=== PATIENT | female | born 1940 | race Caucasian/White ===

== ENCOUNTER 2022-05-12 01:30 | Inpatient (IN) | payer MEDICARE, OTHER ==
[~2022-05-12] VITALS: Ht 152.4 cm; Wt 72.6 kg
--- NOTE | 2022-05-12 02:00 | NUR ---
BIBRA 102 FOR PATIENT LEFT [facility] AND REFUSES TO LIVE THERE. PT TOLERATING R/A WELL WITH NO SOB. CONNECTED PT TO POX AND MONITOR. SAFETY MEASURES IN PLACE.
--- NOTE | 2022-05-12 02:40 | NUR ---
ACE MASTERS (DAUGHTER) [phone]
--- NOTE | 2022-05-12 02:42 | NUR ---
Pt refusing to provide urine sample.
[2022-05-12] MEDS ORDERED: RISP0.5T5 PO (02:52)
[2022-05-12] MEDS ORDERED: TRAZ-182 PO (02:52)
[2022-05-12] MEDS ORDERED: AMLO-212 PO (02:52)
[2022-05-12] MEDS ORDERED: LEVO50TA8 PO (02:52)
[2022-05-12] MEDS ORDERED: LOSA100T31 PO (02:52)
[2022-05-12] MEDS ORDERED: CARV6.252 PO (02:52)
[2022-05-12] MEDS ORDERED: HYDR-4076 PO (02:52)
[2022-05-12] MEDS ORDERED: PANT40TA2 PO (02:52)
[2022-05-12] MEDS ORDERED: CLON0.2T PO (02:52)
[2022-05-12] MEDS ORDERED: ATOR40TA PO (02:52)
[2022-05-12] MEDS ORDERED: ONDA4TAB11 PO (02:52)
[2022-05-12] MEDS ORDERED: LAMO25TA5 PO (02:52)
[2022-05-12 03:20] LABS: BASOPHILS % (AUTO) 0.7 % (0.0-2.0); HEMATOCRIT 37 % (33-45); HEMOGLOBIN 12.9 g/dL (11.5-14.8); LYMPHOCYTES # (AUTO) 1.6 K/uL (0.8-4.8); MEAN CORPUSCULAR HGB CONC 35 g/dl (31.0-36.0); MEAN CORPUSCULAR VOLUME 91 fL (82-100); MONOCYTES # (AUTO) 0.9 K/uL (0.1-1.30); MONOCYTES % (AUTO) 14.3 % (2.0-12.0); NEUTROPHILS # (AUTO) 3.5 K/uL (1.8-8.9); PLATELET COUNT (AUTO) 201 K/uL (150-450); RED BLOOD CELL COUNT(AUTO) 4.13 MIL/uL (4.0-5.2); WHITE BLOOD COUNT (AUTO) 6.1 K/uL (4.3-11.0)
[2022-05-12 03:35] LABS: CALCIUM, SERUM 8.7 mg/dL (8.5-10.1); CARBON DIOXIDE 30 mmol/L (21-32); CHLORIDE 103 mmol/L (98-107); CREATININE 0.9 mg/dL (0.6-1.3); GLUCOSE 103 mg/dL (74-106); SODIUM SERUM 139 mmol/L (136-145); UREA NITROGEN, BLOOD 30 mg/dL (7-18)
[2022-05-12 03:45] LABS: ALANINE AMINOTRANSFERASE 31 U/L (12-78); ALBUMIN 3.6 g/dL (3.4-5.0); ALCOHOL, BLOOD < 3 mg/dL (0-0); ALKALINE PHOSPHATASE 89 U/L (46-116); ASPARTATE AMINOTRANSFERASE 21 U/L (15-37); BILIRUBIN,DIRECT 0.1 mg/dL (0.0-0.2); BILIRUBIN,TOTAL 0.5 mg/dL (0.2-1.0); TOTAL PROTEIN, SERUM 7.3 g/dL (6.4-8.2)
[2022-05-12 03:51] LABS: BILIRUBIN,URINE NEGATIVE (NEGATIVE); LEUKOCYTE ESTERASE ,URINE NEGATIVE (NEGATIVE); NITRITE, URINE NEGATIVE (NEGATIVE); PROTEIN,URINE 30 mg/dl (NEGATIVE); UGLUCOSE NEGATIVE (NEGATIVE); UROBILINOGEN,URINE 0.2 EU/dL (0.2)
[2022-05-12 03:54] LABS: ACETAMINOPHEN < 2 ug/ml (10-30); COLOR,URINE YELLOW (YELLOW)
--- NOTE | 2022-05-12 04:37 | NUR ---
[facility]SA SWAB COLLECTED AND SENT TO LAB. PATIENT'S BELONGINGS LIST DONE.
--- NOTE | 2022-05-12 04:38 | NUR ---
GPS 220-B
[2022-05-12] MEDS: hydrALAZINE HCL 25 MG TABLET PO SCH ×4 (05:00→21:00)
[2022-05-12] MEDS ORDERED: ONDANSETRON 4 MG TAB.RAPDIS PO SCH (05:00)
--- NOTE | 2022-05-12 05:02 | NUR ---
REPORT GIVEN TO MILAD AT GPS
--- NOTE | 2022-05-12 06:15 | NUR ---
PT TRANSFERED TO GPS VIA [facility].
[2022-05-12] MEDS ORDERED: MAG HYDROX/AL HYDROX/SIMETH 30 ML UDC PO PRN (07:00)
[2022-05-12] MEDS ORDERED: LORAZEPAM 0.5 MG TABLET PO PRN (07:00)
[2022-05-12] MEDS ORDERED: ACETAMINOPHEN 325 MG TABLET PO PRN (07:00)
[2022-05-12] MEDS ORDERED: MAGNESIUM HYDROXIDE 30 ML UDC PO PRN (07:00)
[2022-05-12] MEDS ORDERED: BLOOD SUGAR DIAGNOSTIC 1 EACH STRIP IN ONE (07:00)
[2022-05-12] MEDS ORDERED: TEMAZEPAM 7.5 MG CAPSULE PO PRN (07:00)
--- NOTE | 2022-05-12 07:08 | NUR ---
GPS RN ADMITTING NOTES: RECEIVED PATIENT FROM ER. PATIENT IS ON A 5150 HOLD FOR GD. HOLD WAS PLACED ON 05/12/22 @ 0255. PER HOLD PATIENT LEFT [facility] UPON ARRIVAL AT THE FACILITY BECAUSE SHE DOES NOT LIKE THE PLACE AND DOES NOT WANT TO LIVE THERE. PATIENT THEN LEFT THE FACILITY AND HOOKED UP WITH SOME STRANGERS AND HAD FUN UNTIL ABOUT 2AM BEFORE THEY CALLED 911 AFTER REALIZING PATIENT HAD NO PLACE TO GO. WHEN OFFICER ARRIVED, PATIENT SAID SHE WANTED TO FOLLOW HIM HOME. UPON FACE TO FACE EVALUATION, PATIENT IS A/O X3, LABILE, ANXIOUS, COOPERATIVE/UNCOOPERATIVE. PATIENT BS97MG/DL. SKIN ASSESSMENT DONE/SKIN INTACT. PATIENT DAUGHTER ACE INFORMED OF PATIENT ADMISSION AT 0659. PATIENT REFUSED PNEUMONIA VACCINE AND SIGNED SOME ADMISSION PAPERWORK AND REFUSED TO SIGN SOME. PER PATIENT SHE IS NOT VACCINATED AND DOES NOT WANT TO GET VACCINATED. PATIENT BELONGINGS WERE INVENTORIED AND CONTRABAND REMOVED AND PLACED IN PATIENT CONTRABAND LOCKER AND SUPERVISORS SAFE. PATIENT HAVE NO S/S OF DISTRESS, RESPIRATION EVEN AND UNLABORED WITH EQUAL RISE AND FALL OF THE CHEST, ON ROOM AIR. PATIENT IS UNDER THE PSYCHIATRIC CARE OF DR MATHEW AND MEDICAL CARE OF [facility]. PATIENT IS ORIENTED TO STAFF AND UNIT. PATIENT RIGHTS BOOKLET AND PRESCRIPTION MEDICATION GUIDE GIVEN TO PATIENT. PATIENT OFFERED FLUID AND SNACKS TOLERATED. ALL PATIENT CARE NEEDS HAVE BEEN MET ANTICIPATED. PATIENT HAS NO NEED AT THIS TIME. BED IN LOW LOCKED POSITION, SIDE RAILS UP X2 FOR SAFETY. WILL CONTINUE TO MONITOR Q15 FOR SAFETY, MOOD AND BEHAVIOR.
[2022-05-12] MEDS: LEVOTHYROXINE SODIUM 50 MCG TABLET PO SCH (07:30)
[2022-05-12 08:00] VITALS: BP 124/68
--- NOTE | 2022-05-12 08:00 | NUR ---
PT REFUSED MRSA TEST .
--- NOTE | 2022-05-12 08:00 | NUR ---
PATIENT REFUSED ADMISSION PICTURE AND SKIN ASSESSMENT .
[2022-05-12] MEDS ORDERED: LamoTRIgine 25 MG TABLET PO SCH (09:00)
[2022-05-12] MEDS: AMLODIPINE BESYLATE 5 MG TABLET PO SCH ×2 (09:00→09:19)
[2022-05-12] MEDS: PANTOPRAZOLE 40 MG TABLET.DR PO SCH (09:16)
[2022-05-12] MEDS: CARVEDILOL 6.25 MG TABLET PO SCH ×2 (09:18→17:29)
[2022-05-12] MEDS: LOSARTAN POTASSIUM 50 MG TABLET PO SCH (09:18)
[2022-05-12] MEDS: risperiDONE 1 MG TABLET PO SCH ×2 (11:00→17:00)
--- NOTE | 2022-05-12 11:05 | NUR ---
Treatment Plan: Pt refused to sign her treatment plan and was suspicious/paranoid of staff.
--- NOTE | 2022-05-12 11:25 | NUR ---
RAH Clinical Note: Patient placed on a 5150 hold for GD. Pt was found at [address] [facility] and she was confused and wandering on the streets. Patient has been refusing her medications at her facility. Patient currently resides at [facility] [address] [id number]; . Patient does not want to return back to her assisted living. RAH will contact pt's daughter Shanell ([phone]) to gather further collateral and discuss treatment plan.
--- NOTE | 2022-05-12 11:25 | NUR ---
RAH Initial Discharge Plan: Patient currently resides at [facility] [address] [place] [address]; . Patient does not want to return back to her assisted living. RAH will contact pt's daughter Shanell ([phone]) to gather further collateral and discuss treatment plan. RAH will work with the MD, treatment team, and family to help coordinate appropriate discharge.
--- NOTE | 2022-05-12 13:00 | NUR ---
RAH Family Contact: SW contacted pt's daughter Shanell ([phone]) to gather collateral and discuss treatment/discharge plan. Mailbox was full.
--- NOTE | 2022-05-12 14:08 | NUR ---
Facility Contact: RAH received a call from Disha meza from [facility] ([phone]) who stated that this pt was residing at [facility] and upon dc they would want to review her packet to admit pt. RAH will send clinicals on 05/14, , when updated clinicals are available. RAH will send H & P, progress notes, and medication list.
--- NOTE | 2022-05-12 14:59 | NUR ---
RAH Family Contact: SW contacted pt's daughter Shanell ([phone]) to discuss treatment and discharge plan. She was aware of pt going back to [facility] because pt has been there before. She reported she is the DPOA and will send the document to this publications writer.
[2022-05-12 16:00] VITALS: BP 150/86
--- NOTE | 2022-05-12 19:35 | NUR ---
GPS RN OPENING NOTES: RECEIVED PATIENT LAYING ON BED, AWAKE, A/O X3. BLUNTED AFFECT, LABILE, SUSPICIOUS, GUARDED, DEMANDING, COMMANDING, RESTLESS, ASKING TO BE DISCHARGE, TEACHING PROVIDED ABOUT 72HR HOLDS. DENIES PAIN, DENIES SI AT THIS TIME. NO S/S OF DISTRESS. RESPIRATION EVEN AND UNLABORED WITH EQUAL RISE AND FALL OF THE CHEST, ON ROOM AIR. OFFERED FLUID AND SNACKS TOLERATED. BED IN LOW LOCKED POSITION, CALL HICKS WITHIN REACH. WILL CONTINUE TO MONITOR Q15 FOR MOOD, SAFETY AND BEHAVIOR.
[2022-05-12 20:25] VITALS: BP 141/64
--- NOTE | 2022-05-12 21:35 | NUR ---
GPS RN NOTES: PATIENT REFUSED 2100 BP MEDICATION APRESOLINE 25MG 1TAB PO ORDERED. CURRENT BP141/61, P78. PER PATIENT "I'M EXERCISING MY RIGHT TO REFUSE, I CAN ONLY TAKE MEDICATION PRESCRIBED BY DR FU MY DOCTOR". TEACHING PROVIDED ON THE IMPORTANCE OF MAINTAINING BP WNL AND COMPLYING WITH TREATMENT PLAN. PATIENT IS DIFFICULT TO REDIRECT. WILL CONTINUE TO MONITOR.
[2022-05-12] MEDS: ATORVASTATIN 40 MG TABLET PO SCH (22:00)
--- NOTE | 2022-05-12 22:47 | NUR ---
GPS RN NOTES: PATIENT REFUSED 2200 BP MEDICATION LIPITOR 40MG 1TAB PO ORDERED
[2022-05-13] MEDS: hydrALAZINE HCL 25 MG TABLET PO SCH ×3 (05:00→21:00)
--- NOTE | 2022-05-13 05:49 | NUR ---
GPS RN NOTES: PATIENT REFUSED 0500 BP MEDICATION APRESOLINE 25MG 1TAB PO ORDERED.
--- NOTE | 2022-05-13 07:00 | NUR ---
GPS RN CLOSING NOTES: PATIENT IS CURRENTLY LAYING AWAKE, A/O X3. PATIENT SLEPT 7HRS THIS SHIFT. NO S/S OF DISTRESS. RESPIRATION EVEN AND UNLABORED WITH EQUAL RISE AND FALL OF THE CHEST, ON ROOM AIR. ALL PATIENT CARE NEEDS HAVE BEEN MET ANTICIPATED. WILL CONTINUE TO MONITOR Q15 FOR SAFETY, MOOD AND BEHAVIOR AND ENDORSE TO AM SHIFT.
[2022-05-13] MEDS: LEVOTHYROXINE SODIUM 50 MCG TABLET PO SCH (07:30)
[2022-05-13 08:00] VITALS: BP 165/87
[2022-05-13] MEDS: risperiDONE 1 MG TABLET PO SCH ×3 (08:54→21:00)
[2022-05-13] MEDS: CARVEDILOL 6.25 MG TABLET PO SCH ×2 (08:58→16:37)
[2022-05-13] MEDS: LOSARTAN POTASSIUM 50 MG TABLET PO SCH (08:58)
[2022-05-13] MEDS: PANTOPRAZOLE 40 MG TABLET.DR PO SCH (08:59)
[2022-05-13] MEDS: AMLODIPINE BESYLATE 5 MG TABLET PO SCH (08:59)
--- NOTE | 2022-05-13 09:16 | NUR ---
RN-CO: PATIENT DENIED PAIN AND DISCOMFORTS. REFUSED ALL HER MORNING MEDICATIONS. SHE IS EXTREMELY ARGUMENTATIVE, HAS PRESSURED SPEECH, INTENSE EYE CONTACT AND POINTED HER FINGER ON ME WHEN I ENCOURAGED HER TO TAKE AT LEAST HER BP PILL SINCE HER BP IS HIGH. BUT SHE BECAME MORE BELLIGERENT AND THREATEN TO MILA ME. I WILL CONTINUE TO MONITOR. DR MATHEW MADE AWARE.
--- NOTE | 2022-05-13 10:21 | NUR ---
SILAS EASTMAN. RN AND DOCTOR AWARE. Addendum: 05/13/22 at 1021 by SAFIA RAMON RT Amended: Links added.
--- NOTE | 2022-05-13 10:24 | NUR ---
RN-CO: DR MATHEW IS AWARE THAT PATIENT REFUSED EKG.
--- NOTE | 2022-05-13 10:39 | NUR ---
RN-CO: Patient refused lab works, encouraged but got agitated.
[2022-05-13] MEDS: NITROGLYCERIN 30 GM TUBE TP SCH ×2 (12:00→21:00)
--- NOTE | 2022-05-13 13:11 | NUR ---
RN-CO: Patient denied pain and discomforts, v/s are as follows: 152/68,94,98% 0/10, 97.9. Patient refused all her 1200 and 1300 medications. When I encouraged her and discussed the risks she stated " I HAVE A EVERY RIGHTS TO REFUSED. "
--- NOTE | 2022-05-13 14:15 | NUR ---
RN-CO: DR Kerns made aware that patient is refusing all her medications including lab works.
[2022-05-13 16:00] VITALS: BP 162/92
[2022-05-13] MEDS: CLONIDINE HCL 0.1 MG TABLET PO PRN (16:36)
--- NOTE | 2022-05-13 16:38 | NUR ---
RN-CO: Offered clonidine table to help redce bp of 162/92. Patient refused, Discussed the consequences of refusing this medication to her bp but patient stated again, " I have a right to refuse."
--- NOTE | 2022-05-13 19:39 | NUR ---
GPS RN OPENING NOTES: RECEIVED PATIENT AT NURSING STATION, A/O X3. BLUNTED AFFECT, LABILE, SUSPICIOUS, ARGUMENTATIVE, DEMANDING, RESTLESS. STATING "DON'T BOTHER TO GIVE ME ANY MEDICATIONS TONIGHT", THEN ASKED FOR A PHONE TO MAKE A CALL AND WENT BACK TO HER ROOM. NO S/S OF DISTRESS. RESPIRATION EVEN AND UNLABORED WITH EQUAL RISE AND FALL OF THE CHEST, ON ROOM AIR. OFFERED FLUID AND SNACKS TOLERATED. BED IN LOW LOCKED POSITION, CALL HICKS WITHIN REACH. WILL CONTINUE TO MONITOR Q15 FOR MOOD, SAFETY AND BEHAVIOR.
[2022-05-13 20:00] VITALS: BP 165/75
--- NOTE | 2022-05-13 21:22 | NUR ---
GPS RN NOTES: PATIENT REFUSED ALL PM MEDICATIONS. PER PATIENT, "GOD SAID I SHOULD NOT. I WANT TO BE DISCHARGED". PATIENT BP165/75, P81. PATIENT ENCOURAGED TO TAKE AT LEAST HER BP MED APRESOLINE 25 PO BUT PATIENT SAID NO. TEACHING PROVIDED ON THE IMPORTANCE OF COMPLYING WITH MEDICATION REGIMEN. REENFORCEMENT NEEDED. WILL CONTINUE TO MONITOR AND ENDORSE TO AM SHIFT.
[2022-05-13] MEDS: ATORVASTATIN 40 MG TABLET PO SCH (22:00)
[2022-05-14] MEDS: hydrALAZINE HCL 25 MG TABLET PO SCH ×3 (05:00→21:00)
[2022-05-14] MEDS: LEVOTHYROXINE SODIUM 50 MCG TABLET PO SCH (07:30)
[2022-05-14 08:00] VITALS: BP 155/84
[2022-05-14] MEDS: risperiDONE 1 MG TABLET PO SCH ×3 (08:00→21:00)
[2022-05-14] MEDS: LOSARTAN POTASSIUM 50 MG TABLET PO SCH (08:58)
[2022-05-14] MEDS: CARVEDILOL 6.25 MG TABLET PO SCH ×2 (08:58→17:00)
[2022-05-14] MEDS: NITROGLYCERIN 30 GM TUBE TP SCH ×2 (08:59→21:00)
[2022-05-14] MEDS: PANTOPRAZOLE 40 MG TABLET.DR PO SCH (08:59)
[2022-05-14] MEDS: AMLODIPINE BESYLATE 5 MG TABLET PO SCH (08:59)
--- NOTE | 2022-05-14 09:57 | NUR ---
GPS RN NOTE: PATIENT LAYING ON BED, AWAKE, A/O X3. LABILE, SUSPICIOUS, GUARDED, DEMANDING, RESTLESS, EASILY IRRITABLE,PATIENT REFUSED ALL AM MEDICATIONS PT STATES" I HAVE A RIGHT TO REFUSED MEDICATIONS AND CARE" OFFERED AND EXPLAIN X3 PT CONTINUE TO REFUSE. RESPIRATION EVEN AND UNLABORED WITH EQUAL RISE AND FALL OF THE CHEST, ON ROOM AIR. OFFERED FLUID AND SNACKS TOLERATED. BED IN LOW LOCKED POSITION, CALL HICKS WITHIN REACH. WILL CONTINUE TO MONITOR Q15 FOR MOOD, SAFETY AND BEHAVIOR.
[2022-05-14] MEDS: CLONIDINE HCL 0.2MG/24H PTWK 1 EA PATCH TD SCH (10:30)
[2022-05-14 16:00] VITALS: BP 165/84
--- NOTE | 2022-05-14 17:06 | NUR ---
GPS RN NOTE: PATIENT CONTINUE REFUSING MEDICATIONS AND TX , DISCUSS AND DOCUMENT THE PATIENTS UNDERSTANDING OF THE S/S OF CONTINUED NONCOMPLIANCE EXPLAIN PATIENT RISK AND BENEFITS BP MEDICATIONS X3 ,PT CONTINUE BEEN NON COMPLIANT WITH MEDICATIONS. PSYCHIATRIST AND SUPERVISOR GRADING AWARE, CHALINO FILED ,WILL CONTINUE MONITORING.
--- NOTE | 2022-05-14 19:30 | NUR ---
GPS RN NOTE, RECEIVED PATIENT AWAKE AND IN BED, NO S/S OR COMPLAINTS OF PAIN AT THIS TIME. PATIENT IS DISPLAYING NO S/S OF APPARENT DISTRESS AT THIS TIME. PATIENT BREATHING IS UNLABORED WITH EQUAL RISE AND FALL OF THE CHEST. PATIENT IS ALERT AND ORIENTED X 3-4 ON ROOM AIR WITH A SPO2 97%. PATIENT IS REFUSING WITH MEDICATIONS, ANXIOUS AT TIMES, PARANOID, HYPERVERBAL, AND COOPERATIVE. PATIENT DENIES SUICIDAL AND HOMICIDAL IDEATIONS AT THIS TIME. PATIENT ASSISTED WITH TURNING AND REPOSITIONING Q2HR AND PRN FOR COMFORT AND CIRCULATION. PATIENT HAS NO NEEDS AT THIS TIME. PATIENT EDUCATED ON THE USE OF THE CALL HICKS. PATIENT BED SIDE RAILS UP X 2 FOR SAFETY. PATIENT BED IS LOCKED, LOW, WITH BED ALARM ON. WILL CONTINUE TO MONITOR THIS PATIENT Q15 MINUTES WITH THE HELP OF STAFF TO MAINTAIN SAFETY.
[2022-05-14 20:00] VITALS: BP 142/54
--- NOTE | 2022-05-14 21:22 | NUR ---
GPS RN NOTE, PATIENT REFUSED HYDRALAZINE HCL 25MG PO Q8HR, RISPERDAL 0.5MG PO 2100, NITROL OINTMENT 1GM TP Q12HR, AND LIPITOR 40MG PO HS. OFFERED AFOREMENTIONED THREE TIMES AND STILL PATIENT REFUSED STATING, " IT'S MY LEGAL RIGHT TO REFUSE MEDICATION ". EDUCATED PATIENT ON THE RISKS AND BENEFITS OF TAKING AND REFUSED HYDRALAZINE, RISPERDAL, NITROL OINTMENT, AND LIPITOR. WILL CONTINUE TO MONITOR THIS PATIENT WITH THE HELP OF STAFF.
[2022-05-14] MEDS: ATORVASTATIN 40 MG TABLET PO SCH (21:26)
[2022-05-15] MEDS: hydrALAZINE HCL 25 MG TABLET PO SCH ×3 (05:00→21:38)
--- NOTE | 2022-05-15 05:06 | NUR ---
GPS RN NOTE, PATIENT REFUSED HYDRALAZINE HCL 25MG PO Q8HR. OFFERED AFOREMENTIONED THREE TIMES AND STILL PATIENT REFUSED STATING, " IT'S MY LEGAL RIGHT TO REFUSE MEDICATION ". EDUCATED PATIENT ON THE RISKS AND BENEFITS OF TAKING AND REFUSING HYDRALAZINE. WILL CONTINUE TO MONITOR THIS PATIENT WITH THE HELP OF STAFF.
[2022-05-15] MEDS: LEVOTHYROXINE SODIUM 50 MCG TABLET PO SCH (07:30)
--- NOTE | 2022-05-15 07:41 | NUR ---
RN NOTE- PT BP- 225/104 . PT REFUSING ALL MEDICATIONS. NOTIFIED OF BP, INSISTS ON NO MEDICATIONS,. MD MADE AWARE
[2022-05-15 08:00] VITALS: BP 195/122
[2022-05-15] MEDS: risperiDONE 1 MG TABLET PO SCH ×3 (08:00→21:38)
[2022-05-15] MEDS: NITROGLYCERIN 30 GM TUBE TP SCH ×2 (08:30→21:00)
[2022-05-15] MEDS: LOSARTAN POTASSIUM 50 MG TABLET PO SCH (08:30)
[2022-05-15] MEDS: CARVEDILOL 6.25 MG TABLET PO SCH ×2 (08:30→17:08)
[2022-05-15] MEDS: AMLODIPINE BESYLATE 5 MG TABLET PO SCH (08:30)
[2022-05-15] MEDS: PANTOPRAZOLE 40 MG TABLET.DR PO SCH (08:30)
--- NOTE | 2022-05-15 09:00 | NUR ---
RN NOTE- RECEIVED PATIENT LAYING ON BED, AWAKE, A/O X3. LABILE, SUSPICIOUS, GUARDED, DEMANDING, RESTLESS, EASILY IRRITABLE, PATIENT REFUSED ALL AM MEDICATIONS PT STATES "I HAVE A RIGHT TO REFUSED MEDICATIONS AND CARE", ON ROOM AIR. OFFERED FLUID AND SNACKS TOLERATED. BED IN LOW LOCKED POSITION, CALL HICKS WITHIN REACH. WILL CONTINUE TO MONITOR Q15 FOR MOOD, SAFETY AND BEHAVIOR.
[2022-05-15 16:00] VITALS: BP 209/105
[2022-05-15] MEDS ORDERED: OLANZAPINE 10 MG VIAL IM PRN (17:00)
--- NOTE | 2022-05-15 17:10 | NUR ---
RN NOTE- PT HAD HEARINGS AND WAS ORDERED TO STAY ON HOLD BY COURT. ALSO ORDERED TO TAKE RX. REISED. BP- 200/100. 1700 DOSE COREG ADMINISTERED AND TAKEN BY PT. WILL RECHECK BP IN AWHILE. MONITOR
--- NOTE | 2022-05-15 19:30 | NUR ---
GPS RN NOTE, RECEIVED PATIENT AWAKE AND IN BED, NO S/S OR COMPLAINTS OF PAIN AT THIS TIME. PATIENT IS DISPLAYING NO S/S OF APPARENT DISTRESS AT THIS TIME. PATIENT BREATHING IS UNLABORED WITH EQUAL RISE AND FALL OF THE CHEST. PATIENT IS ALERT AND ORIENTED X 3-4 ON ROOM AIR WITH A SPO2 99%. PATIENT IS REFUSING WITH MEDICATIONS, ANXIOUS AT TIMES, PARANOID, HYPERVERBAL, AND COOPERATIVE. PATIENT DENIES SUICIDAL AND HOMICIDAL IDEATIONS AT THIS TIME. PATIENT ASSISTED WITH TURNING AND REPOSITIONING Q2HR AND PRN FOR COMFORT AND CIRCULATION. PATIENT HAS NO NEEDS AT THIS TIME. PATIENT EDUCATED ON THE USE OF THE CALL HICKS. PATIENT BED SIDE RAILS UP X 2 FOR SAFETY. PATIENT BED IS LOCKED, LOW, WITH BED ALARM ON. WILL CONTINUE TO MONITOR THIS PATIENT Q15 MINUTES WITH THE HELP OF STAFF TO MAINTAIN SAFETY.
[2022-05-15 20:29] VITALS: BP 150/66
[2022-05-15] MEDS: ATORVASTATIN 40 MG TABLET PO SCH (21:38)
--- NOTE | 2022-05-15 21:42 | NUR ---
GPS RN NOTE, PATIENT REFUSED NITROL OINTMENT 1GM TP Q12HR. OFFERED AFOREMENTIONED THREE TIMES AND STILL PATIENT REFUSED STATING, " IT'S MY LEGAL RIGHT TO REFUSE MEDICATION ". EDUCATED PATIENT ON THE RISKS AND BENEFITS OF TAKING AND REFUSING NITROL OINTMENT. WILL CONTINUE TO MONITOR THIS PATIENT WITH THE HELP OF STAFF.
[2022-05-16] MEDS: hydrALAZINE HCL 25 MG TABLET PO SCH ×3 (05:23→22:05)
[2022-05-16] MEDS: LEVOTHYROXINE SODIUM 50 MCG TABLET PO SCH (07:30)
[2022-05-16 08:00] VITALS: BP 165/85
[2022-05-16] MEDS: LOSARTAN POTASSIUM 50 MG TABLET PO SCH (09:00)
[2022-05-16] MEDS: risperiDONE 1 MG TABLET PO SCH ×2 (09:00→22:04)
[2022-05-16] MEDS: CARVEDILOL 6.25 MG TABLET PO SCH ×2 (09:00→17:00)
[2022-05-16] MEDS: PANTOPRAZOLE 40 MG TABLET.DR PO SCH (09:00)
[2022-05-16] MEDS: AMLODIPINE BESYLATE 5 MG TABLET PO SCH (09:00)
[2022-05-16] MEDS: NITROGLYCERIN 30 GM TUBE TP SCH ×2 (09:00→21:30)
[2022-05-16 16:06] VITALS: BP 166/89
--- NOTE | 2022-05-16 19:30 | NUR ---
GPS RN NOTE, RECEIVED PATIENT AWAKE AND IN BED, NO S/S OR COMPLAINTS OF PAIN AT THIS TIME. PATIENT IS DISPLAYING NO S/S OF APPARENT DISTRESS AT THIS TIME. PATIENT BREATHING IS UNLABORED WITH EQUAL RISE AND FALL OF THE CHEST. PATIENT IS ALERT AND ORIENTED X 3-4 ON ROOM AIR WITH A SPO2 97%. PATIENT IS COMPLAINT WITH MEDICATIONS, ANXIOUS AT TIMES, PARANOID, HYPERVERBAL, AND COOPERATIVE. PATIENT DENIES SUICIDAL AND HOMICIDAL IDEATIONS AT THIS TIME. PATIENT ASSISTED WITH TURNING AND REPOSITIONING Q2HR AND PRN FOR COMFORT AND CIRCULATION. PATIENT HAS NO NEEDS AT THIS TIME. PATIENT EDUCATED ON THE USE OF THE CALL HICKS. PATIENT BED SIDE RAILS UP X 2 FOR SAFETY. PATIENT BED IS LOCKED, LOW, WITH BED ALARM ON. WILL CONTINUE TO MONITOR THIS PATIENT Q15 MINUTES WITH THE HELP OF STAFF TO MAINTAIN SAFETY.
[2022-05-16 20:17] VITALS: BP 150/60
[2022-05-16] MEDS: ATORVASTATIN 40 MG TABLET PO SCH (22:04)
[2022-05-17] MEDS: hydrALAZINE HCL 25 MG TABLET PO SCH ×3 (05:39→21:10)
[2022-05-17] MEDS: LEVOTHYROXINE SODIUM 50 MCG TABLET PO SCH (07:46)
[2022-05-17 08:00] VITALS: BP 158/70
[2022-05-17] MEDS: CARVEDILOL 6.25 MG TABLET PO SCH ×2 (08:22→16:46)
[2022-05-17] MEDS: AMLODIPINE BESYLATE 5 MG TABLET PO SCH (08:23)
[2022-05-17] MEDS: LOSARTAN POTASSIUM 50 MG TABLET PO SCH (08:23)
[2022-05-17] MEDS: risperiDONE 1 MG TABLET PO SCH ×2 (08:23→21:09)
[2022-05-17] MEDS: PANTOPRAZOLE 40 MG TABLET.DR PO SCH (08:23)
[2022-05-17] MEDS: NITROGLYCERIN 30 GM TUBE TP SCH ×2 (08:25→21:00)
--- NOTE | 2022-05-17 09:10 | NUR ---
RN-CO: PATIENT TOOK HER po MEDICATIONS. SHE IS RIESED, I WILL CONTINUE TO MONITOR.
[2022-05-17] MEDS: DIVALPROEX SODIUM 250 MG TABLET.DR PO SCH ×2 (13:31→16:47)
[2022-05-17 16:00] VITALS: BP 162/78
[2022-05-17] MEDS: CLONIDINE HCL 0.1 MG TABLET PO PRN (16:47)
--- NOTE | 2022-05-17 16:50 | NUR ---
RN-CO: CLONIDINE .2 GIVEN FOR BP 162/78.
--- NOTE | 2022-05-17 19:53 | NUR ---
GPS RN OPENING NOTES: RECEIVED PATIENT IN BED, AWAKE, A/O X3. BLUNTED AFFECT, LABILE, GUARDED, EASILY AGITATED, SUSPICIOUS, ARGUMENTATIVE, DEMANDING. NO S/S OF DISTRESS. RESPIRATION EVEN AND UNLABORED WITH EQUAL RISE AND FALL OF THE CHEST, ON ROOM AIR. OFFERED FLUID AND SNACKS TOLERATED. BED IN LOW LOCKED POSITION, CALL HICKS WITHIN REACH. WILL CONTINUE TO MONITOR Q15 FOR MOOD, SAFETY AND BEHAVIOR.
[2022-05-17 20:00] VITALS: BP 110/55
[2022-05-17] MEDS: ATORVASTATIN 40 MG TABLET PO SCH (21:09)
[2022-05-18] MEDS: hydrALAZINE HCL 25 MG TABLET PO SCH ×3 (04:41→21:22)
--- NOTE | 2022-05-18 05:37 | NUR ---
GPS RN NOTES: PATIENT REFUSED WEEKLY SKIN ASSESSMENT.
--- NOTE | 2022-05-18 06:36 | NUR ---
GPS RN CLOSING NOTES: PATIENT IS CURRENTLY AMBULATING IN HALLWAY, A/O X3. PATIENT SLEPT 9HRS THIS SHIFT. NO S/S OF DISTRESS. RESPIRATION EVEN AND UNLABORED WITH EQUAL RISE AND FALL OF THE CHEST, ON ROOM AIR. ALL PATIENT CARE NEEDS HAVE BEEN MET ANTICIPATED. WILL CONTINUE TO MONITOR Q15 FOR SAFETY, MOOD AND BEHAVIOR AND ENDORSE TO AM SHIFT.
[2022-05-18] MEDS: LEVOTHYROXINE SODIUM 50 MCG TABLET PO SCH (07:30)
[2022-05-18 08:00] VITALS: BP 161/93
--- NOTE | 2022-05-18 08:20 | NUR ---
SNF Referral: SW sent clinicals to [facility] to Wu moore ([phone]) for placement. SW sent H & P, progress notes, and medication list.
[2022-05-18] MEDS: LOSARTAN POTASSIUM 50 MG TABLET PO SCH (08:52)
[2022-05-18] MEDS: AMLODIPINE BESYLATE 5 MG TABLET PO SCH (08:56)
[2022-05-18] MEDS: PANTOPRAZOLE 40 MG TABLET.DR PO SCH (08:57)
[2022-05-18] MEDS: risperiDONE 1 MG TABLET PO SCH ×3 (08:57→21:23)
[2022-05-18] MEDS: DIVALPROEX SODIUM 250 MG TABLET.DR PO SCH ×3 (08:57→17:53)
[2022-05-18] MEDS: CARVEDILOL 6.25 MG TABLET PO SCH ×2 (08:57→17:54)
[2022-05-18] MEDS: NITROGLYCERIN 30 GM TUBE TP SCH ×2 (08:58→21:00)
--- NOTE | 2022-05-18 12:04 | NUR ---
SNF Contact: SW [facility] Wu moore ([phone]) who stated pt is accepted.
--- NOTE | 2022-05-18 12:04 | NUR ---
RAH Family Contact: SW left a voicemail to pts daughter Shanell ([phone]). SW left a detailed voicemail indicating that pt will dc today 05/18 to [facility]. SW indicated that pt is refusing to go to any other facilities.
--- NOTE | 2022-05-18 12:06 | NUR ---
Discharge Note: Patient will be discharged to snf facility [facility] [address] [address], [place] [address]; ). Please arrange transportation at 1PM. Spray Gun Sizer spoke with Wu regional director of admissions at [facility]; ([phone], who stated patient will be accepted today. SW left a voicemail to pts daughter Shanell ([phone]). Patient is alert and oriented x2 and is unable to plan for self-care. Patient denies any suicidal or homicidal ideations. Patient is aware and agreeable with discharge plans. Patient will continue to follow-up with (psychiatrist) Dr. Unger [address], [place] [address]; ([phone]) and (track repairer helper) Dr. Garza [address] [facility] [address], [place] [address]; ([phone]). Patient presents with euthymic and congruent mood.
[2022-05-18] MEDS: BENZTROPINE MESYLATE (1 MG) 1 MG TABLET PO SCH ×2 (12:30→21:23)
[2022-05-18] MEDS ORDERED: LORAZEPAM 1 MG TABLET PO ONE (14:00)
[2022-05-18 16:00] VITALS: BP 129/76
--- NOTE | 2022-05-18 19:35 | NUR ---
GPS RN OPENING NOTES: RECEIVED PATIENT SLEEPING IN BED. NO S/S OF DISTRESS. RESPIRATION EVEN AND UNLABORED WITH EQUAL RISE AND FALL OF THE CHEST, ON ROOM AIR. BED IN LOW LOCKED POSITION, CALL HICKS WITHIN REACH. WILL CONTINUE TO MONITOR Q15 FOR MOOD, SAFETY AND BEHAVIOR.
[2022-05-18 20:00] VITALS: BP 141/58
[2022-05-18] MEDS: ATORVASTATIN 40 MG TABLET PO SCH (21:23)
[2022-05-19] MEDS: hydrALAZINE HCL 25 MG TABLET PO SCH ×3 (05:26→21:29)
--- NOTE | 2022-05-19 06:24 | NUR ---
GPS RN NOTES: PATIENT REFUSED COVID TEST FOR PLACEMENT. PER PATIENT "I WILL ONLY TAKE THE TEST WHEN I'M SURE I GOING TO A SAFE PLACE FROM HERE". PATIENT SAID SHE WILL DISCUSS FURTHER WITH ARCH CUSHION PRESS OPERATOR AND HER DAUGHTER.
--- NOTE | 2022-05-19 07:08 | NUR ---
GPS RN CLOSING NOTES: PATIENT IS CURRENTLY AWAKE, A/O X3. PATIENT SLEPT 6HRS THIS SHIFT. NO S/S OF DISTRESS. RESPIRATION EVEN AND UNLABORED WITH EQUAL RISE AND FALL OF THE CHEST, ON ROOM AIR. ALL PATIENT CARE NEEDS HAVE BEEN MET ANTICIPATED. WILL CONTINUE TO MONITOR Q15 FOR SAFETY, MOOD AND BEHAVIOR AND ENDORSE TO AM SHIFT.
[2022-05-19] MEDS: LEVOTHYROXINE SODIUM 50 MCG TABLET PO SCH (07:52)
[2022-05-19] MEDS: risperiDONE 1 MG TABLET PO SCH ×3 (07:53→21:27)
[2022-05-19 08:00] VITALS: BP 170/92
[2022-05-19] MEDS: AMLODIPINE BESYLATE 5 MG TABLET PO SCH (08:01)
[2022-05-19] MEDS: PANTOPRAZOLE 40 MG TABLET.DR PO SCH (08:01)
[2022-05-19] MEDS: CLONIDINE HCL 0.1 MG TABLET PO PRN (08:01)
[2022-05-19] MEDS: BENZTROPINE MESYLATE (1 MG) 1 MG TABLET PO SCH ×2 (08:02→21:28)
[2022-05-19] MEDS: CARVEDILOL 6.25 MG TABLET PO SCH ×2 (08:02→16:42)
[2022-05-19] MEDS: LOSARTAN POTASSIUM 50 MG TABLET PO SCH (08:03)
[2022-05-19] MEDS: DIVALPROEX SODIUM 250 MG TABLET.DR PO SCH (08:03)
[2022-05-19] MEDS: NITROGLYCERIN 30 GM TUBE TP SCH ×2 (08:06→21:00)
--- NOTE | 2022-05-19 09:31 | NUR ---
Writ: secretary receptionist Laura had faxed writ to wrong fax number ([phone]) and had to fax it to ([phone]) instead. secretary receptionist Cristal faxed to correct ([phone]).
--- NOTE | 2022-05-19 10:04 | NUR ---
RN-CO: PATIENT DENIED PAIN AND DISCOMFORTS. EASILY AGITATED, ARGUMENTATIVE AND SUSPICIOUS TO STAFF. SHE IS WRITTING ANYTHING SHE HEARS FROM THE STAFF AND SHE BELIEVES IT IS AGAINST HER. HER EYE CONTACT IS INTENSE AND HER VOICE IS PRESSURED. I WILL CONTINUE TO MONITOR.
--- NOTE | 2022-05-19 13:19 | NUR ---
RN-CO: DR MATHEW MADE AWARE THAT THE WRIT HEARING WILL BE TOMORROW AT 08:30 AM.
--- NOTE | 2022-05-19 15:49 | NUR ---
RN-CO: PATIENT JUST CAME IN THE NURSING STATION WITH AN ANGRY FACE AND STATED " I DON'T TRUST DR MATHEW."
--- NOTE | 2022-05-19 15:50 | NUR ---
RN-CO: PT REFUSED COVID TEST A REQUIREMENT IN THE DISCHARGE PLACEMENT.
[2022-05-19 16:14] VITALS: BP 141/59
--- NOTE | 2022-05-19 19:44 | NUR ---
GPS RN OPENING NOTES: RECEIVED PATIENT IN BED, AWAKE A/O X3. APPEARS DEPRESSED, BLUNTED AFFECT, PASSIVE, ISOLATIVE, NEEDY, NOT INTERACTING WITH PEERS. PER PATIENT SHE IS HAPPY THE MD DISCONTINUED HER DEPAKOTE. NO S/S OF DISTRESS. RESPIRATION EVEN AND UNLABORED WITH EQUAL RISE AND FALL OF THE CHEST, ON ROOM AIR. BED IN LOW LOCKED POSITION, CALL HICKS WITHIN REACH. WILL CONTINUE TO MONITOR Q15 FOR MOOD, SAFETY AND BEHAVIOR.
[2022-05-19 20:26] VITALS: BP 142/63
[2022-05-19] MEDS: ATORVASTATIN 40 MG TABLET PO SCH (21:28)
--- NOTE | 2022-05-19 21:30 | NUR ---
GPS RN NOTES: COGENTIN 0.5MG WASTED PER PARTIAL DOSE ORDER.
[2022-05-20] MEDS: hydrALAZINE HCL 25 MG TABLET PO SCH ×3 (06:42→21:25)
--- NOTE | 2022-05-20 06:52 | NUR ---
GPS RN CLOSING NOTES: PATIENT IS CURRENTLY AWAKE, A/O X3. PATIENT SLEPT 1HRS THIS SHIFT. REFUSED TO SLEEP WITH MULTIPLE REDIRECTION. REFUSED SLEEP MEDICATION WHEN OFFERED. PER PATIENT "I'M PREPARING FOR MY COURT SESSION". PATIENT KEPT REQUESTING FOR VARIOUS THINGS LIKE PENCILS, PAPERS, COOKIES, ETC THROUGHOUT THE NIGHT. NO S/S OF DISTRESS. RESPIRATION EVEN AND UNLABORED WITH EQUAL RISE AND FALL OF THE CHEST, ON ROOM AIR. ALL PATIENT CARE NEEDS HAVE BEEN MET ANTICIPATED. WILL CONTINUE TO MONITOR Q15 FOR SAFETY, MOOD AND BEHAVIOR AND ENDORSE TO AM SHIFT.
[2022-05-20 08:00] VITALS: BP_SYST 144; BP_DIAS 59; BP_DIAS 69
[2022-05-20] MEDS: LEVOTHYROXINE SODIUM 50 MCG TABLET PO SCH (08:03)
[2022-05-20] MEDS: PANTOPRAZOLE 40 MG TABLET.DR PO SCH (09:00)
[2022-05-20] MEDS: risperiDONE 1 MG TABLET PO SCH ×4 (09:00→16:59)
[2022-05-20] MEDS: AMLODIPINE BESYLATE 5 MG TABLET PO SCH (09:00)
[2022-05-20] MEDS: BENZTROPINE MESYLATE (1 MG) 1 MG TABLET PO SCH ×2 (09:00→21:24)
[2022-05-20] MEDS: NITROGLYCERIN 30 GM TUBE TP SCH ×2 (09:00→21:00)
[2022-05-20] MEDS: CARVEDILOL 6.25 MG TABLET PO SCH ×2 (09:01→16:59)
[2022-05-20] MEDS: LOSARTAN POTASSIUM 50 MG TABLET PO SCH (09:01)
--- NOTE | 2022-05-20 13:36 | NUR ---
RN-NOTES RISPERDAL 1MG P.O SCHEDULE AT 1330 NOT ADMINISTER DUE TO DOSE WAS ALREADY GIVEN @ 1306.
[2022-05-20 16:00] VITALS: BP 140/68
--- NOTE | 2022-05-20 16:22 | NUR ---
[employer] Appeal: assistant corporate secretary Cristal attempted to contact Clerk Jerad, ([phone]) at 1400 to ask questions about appeal as pt stated withdrawal in the writ hearing today 05/20/2022 at 8:30AM. Devante stated that he would contact the department at 113 to speak to courier delivery driver to confirm statement or to speak to patient to confirm withdrawal. Devante stated that the district attorneys were in court and were unavailable due to ongoing court. assistant corporate secretary Cristal, received another call from Elizabeth Killian ([phone]) ext. [phone] who stated that she would also follow up and she never contacted back. Instructional Writer, Cristal, left a voicemail for Elizabeth Killian at 4PM. At 1558, [facility]ourer Kellie Martinez (cellphone: [phone]) called inquiring about the hearing and will follow up with Elizabeth Perez. Addendum: 05/20/22 at 1630 by RAH DANIELS Devante stated to the drying unit felting machine operator at 4PM that technical issues were occuring and it would have to be followed up on 05/21/2022.
--- NOTE | 2022-05-20 19:30 | NUR ---
GPS RN NOTE, RECEIVED PATIENT AWAKE AND IN BED, NO S/S OR COMPLAINTS OF PAIN AT THIS TIME. PATIENT IS DISPLAYING NO S/S OF APPARENT DISTRESS AT THIS TIME. PATIENT BREATHING IS UNLABORED WITH EQUAL RISE AND FALL OF THE CHEST. PATIENT IS ALERT AND ORIENTED X 3-4 ON ROOM AIR WITH A SPO2 97%. PATIENT IS REFUSING WITH MEDICATIONS, ANXIOUS AT TIMES, PARANOID, AND COOPERATIVE. PATIENT DENIES SUICIDAL AND HOMICIDAL IDEATIONS AT THIS TIME. PATIENT ASSISTED WITH TURNING AND REPOSITIONING Q2HR AND PRN FOR COMFORT AND CIRCULATION. PATIENT HAS NO NEEDS AT THIS TIME. PATIENT EDUCATED ON THE USE OF THE CALL HICKS. PATIENT BED SIDE RAILS UP X 2 FOR SAFETY. PATIENT BED IS LOCKED, LOW, WITH BED ALARM ON. WILL CONTINUE TO MONITOR THIS PATIENT Q15 MINUTES WITH THE HELP OF STAFF TO MAINTAIN SAFETY.
[2022-05-20 20:00] VITALS: BP 158/68
[2022-05-20] MEDS ORDERED: risperiDONE 1 MG TABLET PO SCH (21:00)
[2022-05-20] MEDS: ATORVASTATIN 40 MG TABLET PO SCH (21:24)
[2022-05-21] MEDS: hydrALAZINE HCL 25 MG TABLET PO SCH ×3 (05:11→21:22)
[2022-05-21 08:00] VITALS: BP 163/82
[2022-05-21] MEDS: AMLODIPINE BESYLATE 5 MG TABLET PO SCH (08:11)
[2022-05-21] MEDS: BENZTROPINE MESYLATE (1 MG) 1 MG TABLET PO SCH ×2 (08:11→21:22)
[2022-05-21] MEDS: LOSARTAN POTASSIUM 50 MG TABLET PO SCH (08:11)
[2022-05-21] MEDS: CARVEDILOL 6.25 MG TABLET PO SCH ×2 (08:12→16:14)
[2022-05-21] MEDS: LEVOTHYROXINE SODIUM 50 MCG TABLET PO SCH (08:12)
[2022-05-21] MEDS: PANTOPRAZOLE 40 MG TABLET.DR PO SCH (08:12)
[2022-05-21] MEDS: risperiDONE 1 MG TABLET PO SCH ×3 (08:12→21:21)
[2022-05-21] MEDS: NITROGLYCERIN 30 GM TUBE TP SCH ×2 (08:15→21:00)
--- NOTE | 2022-05-21 09:45 | NUR ---
RN Notes: Received pt.awake in bed, responsive to staffs, no distress and no agitation noted.Ate 100% for breakfast,compliant on meds.pt.refused for Nitrol ointment and refused Clonidine patch, was explained on the importance and still refusing.Encouraged to verbalize feelings and motivated to attend group activity. Needs attended and will continue to monitor for safety.
[2022-05-21] MEDS: CLONIDINE HCL 0.2MG/24H PTWK 1 EA PATCH TD SCH (10:30)
[2022-05-21 10:43] VITALS: BP 150/79
[2022-05-21] MEDS ORDERED: OLANZAPINE 10 MG VIAL IM PRN (12:00)
--- NOTE | 2022-05-21 13:00 | NUR ---
Dr. Liu in the unit and made aware that pt. refused for Nitrol ointment and Clonidine patch Addendum: 05/22/22 at 0933 by YANELY KHAN RN Not Dr. Liu but Dr. Harman
[2022-05-21 16:00] VITALS: BP 159/71
--- NOTE | 2022-05-21 19:30 | NUR ---
GPS RN NOTE, RECEIVED PATIENT AWAKE AND IN BED, NO S/S OR COMPLAINTS OF PAIN AT THIS TIME. PATIENT IS DISPLAYING NO S/S OF APPARENT DISTRESS AT THIS TIME. PATIENT BREATHING IS UNLABORED WITH EQUAL RISE AND FALL OF THE CHEST. PATIENT IS ALERT AND ORIENTED X 3-4 ON ROOM AIR WITH A SPO2 96%. PATIENT IS REFUSING WITH MEDICATIONS, ANXIOUS AT TIMES, PARANOID, AND COOPERATIVE. PATIENT DENIES SUICIDAL AND HOMICIDAL IDEATIONS AT THIS TIME. PATIENT ASSISTED WITH TURNING AND REPOSITIONING Q2HR AND PRN FOR COMFORT AND CIRCULATION. PATIENT HAS NO NEEDS AT THIS TIME. PATIENT EDUCATED ON THE USE OF THE CALL HICKS. PATIENT BED SIDE RAILS UP X 2 FOR SAFETY. PATIENT BED IS LOCKED, LOW, WITH BED ALARM ON. WILL CONTINUE TO MONITOR THIS PATIENT Q15 MINUTES WITH THE HELP OF STAFF TO MAINTAIN SAFETY.
[2022-05-21] MEDS: ATORVASTATIN 40 MG TABLET PO SCH (21:21)
[2022-05-21 21:40] VITALS: BP 162/74
[2022-05-22] MEDS: hydrALAZINE HCL 25 MG TABLET PO SCH ×3 (05:43→21:10)
[2022-05-22 08:00] VITALS: BP 165/82
[2022-05-22] MEDS: risperiDONE 1 MG TABLET PO SCH ×3 (08:01→21:09)
[2022-05-22] MEDS: LEVOTHYROXINE SODIUM 50 MCG TABLET PO SCH (08:01)
[2022-05-22] MEDS: LOSARTAN POTASSIUM 50 MG TABLET PO SCH (08:01)
[2022-05-22] MEDS: PANTOPRAZOLE 40 MG TABLET.DR PO SCH (08:01)
[2022-05-22] MEDS: CARVEDILOL 6.25 MG TABLET PO SCH ×2 (08:02→16:14)
[2022-05-22] MEDS: BENZTROPINE MESYLATE (1 MG) 1 MG TABLET PO SCH ×2 (08:02→21:09)
[2022-05-22] MEDS: AMLODIPINE BESYLATE 5 MG TABLET PO SCH (08:02)
[2022-05-22] MEDS: NITROGLYCERIN 30 GM TUBE TP SCH ×2 (08:53→21:00)
--- NOTE | 2022-05-22 09:28 | NUR ---
SNF Contact: RAH spoke with admin Giancarlo from [facility] ([phone]) who stated pt was at [facility] and would want to assess pt going back to [facility]. RAH expressed that pt does not want to go back but he is more than welcome to come assess the pt today 05/22/2022. Giancarlo will assess pt at 11AM, 05/22/2022. RAH sent pt's clinicals ([phone]).
--- NOTE | 2022-05-22 09:45 | NUR ---
RN Notes: Received pt.awake in bed, responsive to staffs, no distress and no agitation noted.Ate 100% for breakfast, refused the Nitrol ointment and compliant on the rest of the meds. Encouraged to verbalize feelings and motivated to attend group activity. Needs attended and will continue to monitor for safety.
--- NOTE | 2022-05-22 10:42 | NUR ---
SNF Contact: RAH spoke with admin Giancarlo from [facility] ([phone]) who stated that he will come assess the pt on 05/26/2022 instead.
--- NOTE | 2022-05-22 14:00 | NUR ---
SW Note: SW contacted pt's daughter Shanell to convince pt to take rapid covid test and pt denied and did not want to take it. Pt stated to daughter that she would prefer to go live with daughter. Daughter stated it was not an option. SW and daughter were unsuccessful.
--- NOTE | 2022-05-22 15:47 | NUR ---
SW Note: SW attempted to speak to pt in regards to taking the rapid covid test. Pt still refused and did not want to take the rapid test. Pt kept stating she wants a "safe place". SW gave pt options for nursing facilities. [facility], [facility], and [facility] facility of [facility] who pt was at before ([facility]ly [facility]). Pt kept denying and did not want to go.
--- NOTE | 2022-05-22 15:55 | NUR ---
RAH Family Contact: RAH left a voicemail to pts daughter Shanell ([phone]) to daughter. She had requested to speak to Dr. Unger and Dr. Carlson who is currently covering for pt asked pt if he may contact daughter and pt stated "No". SW left a detailed voicemail in regards to this.
[2022-05-22 16:00] VITALS: BP 149/75
--- NOTE | 2022-05-22 19:33 | NUR ---
GPS RN NOTE, RECEIVED PATIENT AWAKE AND IN BED, NO S/S OR COMPLAINTS OF PAIN AT THIS TIME. PATIENT IS DISPLAYING NO S/S OF APPARENT DISTRESS AT THIS TIME. PATIENT BREATHING IS UNLABORED WITH EQUAL RISE AND FALL OF THE CHEST. PATIENT IS ALERT AND ORIENTED X 3-4 ON ROOM AIR WITH A SPO2 96%. PATIENT SELECTIVE WITH MEDICATIONS, ANXIOUS AT TIMES, PARANOID, AND COOPERATIVE. PATIENT DENIES SUICIDAL AND HOMICIDAL IDEATIONS AT THIS TIME. PATIENT ASSISTED WITH TURNING AND REPOSITIONING Q2HR AND PRN FOR COMFORT AND CIRCULATION. PATIENT HAS NO NEEDS AT THIS TIME. PATIENT EDUCATED ON THE USE OF THE CALL HICKS. PATIENT BED SIDE RAILS UP X 2 FOR SAFETY. PATIENT BED IS LOCKED, LOW, WITH BED ALARM ON. WILL CONTINUE TO MONITOR THIS PATIENT Q15 MINUTES WITH THE HELP OF STAFF TO MAINTAIN SAFETY.
[2022-05-22 20:00] VITALS: BP 151/65
[2022-05-22] MEDS: ATORVASTATIN 40 MG TABLET PO SCH (21:09)
[2022-05-23] MEDS: hydrALAZINE HCL 25 MG TABLET PO SCH ×3 (05:30→20:34)
[2022-05-23 08:00] VITALS: BP 145/72
[2022-05-23] MEDS: LEVOTHYROXINE SODIUM 50 MCG TABLET PO SCH (08:28)
[2022-05-23] MEDS: PANTOPRAZOLE 40 MG TABLET.DR PO SCH (08:28)
[2022-05-23] MEDS: AMLODIPINE BESYLATE 5 MG TABLET PO SCH (08:28)
[2022-05-23] MEDS: LOSARTAN POTASSIUM 50 MG TABLET PO SCH (08:28)
[2022-05-23] MEDS: risperiDONE 1 MG TABLET PO SCH ×3 (08:29→20:30)
[2022-05-23] MEDS: BENZTROPINE MESYLATE (1 MG) 1 MG TABLET PO SCH ×2 (08:29→20:29)
[2022-05-23] MEDS: CARVEDILOL 6.25 MG TABLET PO SCH ×2 (08:29→16:02)
[2022-05-23] MEDS: NITROGLYCERIN 30 GM TUBE TP SCH ×2 (08:36→20:33)
--- NOTE | 2022-05-23 10:00 | NUR ---
RN Notes: Received pt.awake in bed, responsive to staffs, no distress and no agitation noted. Ate 100% for breakfast, refused the Nitrol ointment and compliant on the rest of the meds. Encouraged to verbalize feelings and motivated to attend group activity. Pt.took shower by herself. Needs attended and will continue to monitor for safety.
[2022-05-23 16:00] VITALS: BP 151/75
[2022-05-23 20:54] VITALS: BP 130/70
[2022-05-23] MEDS: ATORVASTATIN 40 MG TABLET PO SCH (21:04)
[2022-05-24] MEDS: hydrALAZINE HCL 25 MG TABLET PO SCH ×3 (04:30→21:56)
--- NOTE | 2022-05-24 06:49 | NUR ---
RN NOTE : PATIENT IN HER ROOM RESTING. PT.8 HOURS OF SLEEP, NO S/SX OF ACUTE DISTRESS NOTED.PT. NO BEHAVIOR PROBLEMS NOTED IN THIS SHIFT COOPERTIVE AT TIMES, MED COMPLIANT, EASILY AGITATED , NO VERBALIZATION OF THOUGHTS AND FEELINGS. SAFETY PRECAUTIONS IN PLACE. WILL CONTINUE TO MONITOR Q15MIN ROUNDS FOR SAFETY AND BEHAVIOR.
[2022-05-24 08:00] VITALS: BP 137/62
[2022-05-24] MEDS: risperiDONE 1 MG TABLET PO SCH ×3 (08:04→21:56)
[2022-05-24] MEDS: PANTOPRAZOLE 40 MG TABLET.DR PO SCH (08:04)
[2022-05-24] MEDS: LEVOTHYROXINE SODIUM 50 MCG TABLET PO SCH (08:05)
[2022-05-24] MEDS: BENZTROPINE MESYLATE (1 MG) 1 MG TABLET PO SCH ×2 (08:05→21:56)
[2022-05-24] MEDS: AMLODIPINE BESYLATE 5 MG TABLET PO SCH (08:06)
[2022-05-24] MEDS: LOSARTAN POTASSIUM 50 MG TABLET PO SCH (08:06)
[2022-05-24] MEDS: CARVEDILOL 6.25 MG TABLET PO SCH ×2 (08:06→17:06)
[2022-05-24] MEDS: NITROGLYCERIN 30 GM TUBE TP SCH ×2 (08:11→21:00)
[2022-05-24 13:39] VITALS: BP 140/68
[2022-05-24 16:04] VITALS: BP 148/74
--- NOTE | 2022-05-24 18:28 | NUR ---
RN-NOTES PATIENT IN THE ROOM AWAKE,ALERT X3, SITTING IN BED READING GUARDED,CALM,COOPERATIVE WITH STAFF. NO ACUTE DISTRESS NOTED.COMPLIANT WITH MEDICATIONS.AMBULATORY STEADY GAIT.ABLE TO MAKE NEEDS KNOWN TO THE STAFF. WILL CONT. MONITORING FOR SAFETY AND BEHAVIOR. WILL ENDORSE TO INCOMING SHIFT FOR CONTINUITY OF CARE.
[2022-05-24 20:24] VITALS: BP 141/63
[2022-05-24] MEDS: ATORVASTATIN 40 MG TABLET PO SCH (21:56)
[2022-05-25] MEDS: hydrALAZINE HCL 25 MG TABLET PO SCH ×4 (04:43→21:05)
[2022-05-25] MEDS: LEVOTHYROXINE SODIUM 50 MCG TABLET PO SCH ×2 (07:58→08:16)
[2022-05-25 08:00] VITALS: BP 129/66
[2022-05-25] MEDS: PANTOPRAZOLE 40 MG TABLET.DR PO SCH (08:15)
[2022-05-25] MEDS: risperiDONE 1 MG TABLET PO SCH ×3 (08:15→21:31)
[2022-05-25] MEDS: BENZTROPINE MESYLATE (1 MG) 1 MG TABLET PO SCH ×2 (08:16→21:03)
[2022-05-25] MEDS: LOSARTAN POTASSIUM 50 MG TABLET PO SCH (08:16)
[2022-05-25] MEDS: AMLODIPINE BESYLATE 5 MG TABLET PO SCH (08:16)
[2022-05-25] MEDS: CARVEDILOL 6.25 MG TABLET PO SCH ×2 (08:16→16:09)
[2022-05-25] MEDS: NITROGLYCERIN 30 GM TUBE TP SCH ×2 (08:17→21:00)
[2022-05-25 13:13] VITALS: BP 128/63
[2022-05-25 16:00] VITALS: BP 122/68
--- NOTE | 2022-05-25 18:24 | NUR ---
RN-NOTES PATIENT LAYING IN BED AWAKE,ALERT X3, SITTING IN BED READING GUARDED,CALM,COOPERATIVE WITH STAFF. NO ACUTE DISTRESS NOTED.COMPLIANT WITH MEDICATIONS.AMBULATORY STEADY GAIT.ABLE TO MAKE NEEDS KNOWN TO THE STAFF. WILL CONT. MONITORING FOR SAFETY AND BEHAVIOR. WILL ENDORSE TO INCOMING SHIFT FOR CONTINUITY OF CARE.
--- NOTE | 2022-05-25 19:20 | NUR ---
GPS RN NOTES RECEIVED PATIENT IN BED AWAKE, ALERT AND ORIENTED X3. ABLE TO MAKE NEEDS KNOWN. NO S/S OF ACUTE DISTRESS NOTED. PATIENT IS COOPERATIVE TO CARE, ISOLATES IN THE ROOM AND LABILE. ENCOURAGED TO VERBALIZE FEELINGS AND MOTIVATED TO ATTEND IN GROUP ACTIVITIES. SAFETY PRECAUTIONS IN PLACE. WILL CONTINUE TO MONITOR QA5MIN ROUNDS FOR SAFETY AND BEHAVIOR.
[2022-05-25 19:54] VITALS: BP 135/71
[2022-05-25] MEDS: ATORVASTATIN 40 MG TABLET PO SCH (21:03)
--- NOTE | 2022-05-25 21:09 | NUR ---
GPS RN NOTES: MEDICATION REFUSAL PATIENT REFUSED SCHEDULED NITROGLYCERIN OINTMENT FOR TONIGHT. EDUCATED PATIENT REGARDING MEDICATION COMPLIANCE. PATIENT STATES, "NO, I DON'T WANT IT." OFFERED X3. PATIENT CONTINUED TO REFUSE.
[2022-05-25] MEDS ORDERED: risperiDONE 1 MG TABLET ONE (21:25)
--- NOTE | 2022-05-25 21:31 | NUR ---
GPS RN NOTES RISPERDAL 2MG WAS GIVEN AT 2130. DRUG NOT AVAILABLE IN THE UNIT. CHARGE NURSE FROM [address] [place] [address] OVERRIDE THIS MEDICATION. GREEN MARKETER DORI MADE AWARE.
[2022-05-26] MEDS: hydrALAZINE HCL 25 MG TABLET PO SCH ×2 (06:11→13:28)
[2022-05-26 08:00] VITALS: BP 151/61
[2022-05-26] MEDS: NITROGLYCERIN 30 GM TUBE TP SCH (09:00)
[2022-05-26] MEDS: PANTOPRAZOLE 40 MG TABLET.DR PO SCH (10:19)
[2022-05-26] MEDS: CARVEDILOL 6.25 MG TABLET PO SCH (10:20)
[2022-05-26] MEDS: AMLODIPINE BESYLATE 5 MG TABLET PO SCH (10:20)
[2022-05-26] MEDS: BENZTROPINE MESYLATE (1 MG) 1 MG TABLET PO SCH (10:21)
[2022-05-26] MEDS: LOSARTAN POTASSIUM 50 MG TABLET PO SCH (10:21)
[2022-05-26] MEDS: risperiDONE 1 MG TABLET PO SCH (10:21)
[2022-05-26] MEDS: LEVOTHYROXINE SODIUM 50 MCG TABLET PO SCH (10:21)
[2022-05-26 13:28] VITALS: BP 153/73
--- NOTE | 2022-05-26 14:22 | NUR ---
SNF Contacts: Due to pt refusing covid test, SW contacted Glynn moore ([phone]) stated no facility will accept pt without a covid test. SW contacted Arianne moore ([phone]) who stated no other facility are accepting pt due to covid test. She stated only one facility [facility] is and this machine sign writer sent clinicals and they denied pt due to behavioral issues. Health system, RAH spoke with Disha meza ([phone]) who stated that they are willing to take pt with old covid test done on 05/12/2022 since pt has been their pt in the past and are familiar.
--- NOTE | 2022-05-26 14:24 | NUR ---
RAH Family Contact: RAH spoke with pt's daughter Shanell ([phone]), who stated that she is the DPOA and will send the documents by end of today 05/26/2022 as she has been off due to the holiday. RAH explained that they are not accepting pt due to her not taking the covid test. RAH explained that this field underwriter has attempted to try [facility] and they denied due to behavior. RAH explained [facility] is willing to take her mother and she was agreeable of this plan.
--- NOTE | 2022-05-26 14:26 | NUR ---
RAH Discharge Plan: Pt will be discharged to [facility] located at [address] [place] [address] . Please arrange ambulance. RAH spoke with Disha meza ([phone]) who stated pt is welcomed back today. Pts daughter Shanell ([phone]), was made aware of the discharge. Upon discharge, the pt appears to be in a dysphoric mood and presented with a congruent affect. Pt appears to be alert and oriented x2. Pt denies both suicidal and homicidal ideation as well as auditory and visual hallucinations. Pt appears to be ambulatory with a steady gait. Pt will continue to be under the care of psychiatrist, Dr. Anders, located at [facility] [id number] [place] [id number]; ([phone]). Pt will be under the care of auto radiator mechanic, Dr. Garza, located at [address] [place] [address]; . The choice of vendor form and multidisciplinary exit care form were done, printed, signed, and given to the patient.
--- NOTE | 2022-05-26 15:40 | NUR ---
dr. alex calling in and giving discharge order for today.pt. denies s/i,h/i and denies hallucinations.not happy about being dc'd.refused to sign all paperwork.given belongings.report called to rivera at facility and report given to drivers.taken via amb. to transferring facility.
== END 2022-05-26 15:40 | DRG 885 ==
LOC: ER 01:32 → EDBD 01:32 → GPS 04:41
PROVIDERS: ADMIT Psychiatry & Neurology Psychosomatic Medicine; ATTEND Internal Medicine Nephrology
DX: F25.0 Schizoaffective disorder, bipolar type (principal); G93.40 Encephalopathy, unspecified; Z20.822 Contact with and (suspected) exposure to COVID-19; I10 Essential (primary) hypertension; Z79.899 Other long term (current) drug therapy; E86.0 Dehydration; R79.89 Other specified abnormal findings of blood chemistry; E03.9 Hypothyroidism, unspecified; E78.5 Hyperlipidemia, unspecified; Z79.890 Hormone replacement therapy; Z86.16 Personal history of COVID-19; Z91.14 Patient's other noncompliance with medication regimen; G31.84 Mild cognitive impairment of uncertain or unknown etiology; F29 Unspecified psychosis not due to a substance or known physiological condition
CPT/HCPCS: 36415; 80048-TC; 80076-TC; 82962-TC; 85025-TC; 87081-TC; C9803; G0480